=== PATIENT | male | born 1935 | race Caucasian/White ===

== ENCOUNTER 2020-02-07 11:35 | Outpatient (CLI) | payer OTHER, SELFPAY ==
--- NOTE | 2020-02-07 11:45 | MM_ITS ---
WS: [id number] BILATERAL DIGITAL DIAGNOSTIC MAMMOGRAM MAMMOGRAPHY WITH CAD CLINICAL INFORMATION: LEFT BREAST PAIN LUMP MASTODYNIA COMPARISON: None. TECHNIQUE: Bilateral CC, MLO, and ML views. FINDINGS: Scattered fibroglandular densities bilaterally. Palpable marker left breast. Dense parenchymal breast tissue deep to the palpable marker at the left areola. Similar-appearing parenchymal tissue subareol ar right breast. Ultrasound is pending ULTRASOUND BREAST LEFT TECHNIQUE: Ultrasound left breast focused area of concern. CLINICAL INFORMATION: LEFT BREAST PAIN LUMP MASTODYNIA COMPARISON: None. FINDINGS: Ultrasound left breast at the nipple area. Right breast areola ultrasound obtained for comparison. De nse shadowing breast tissue deep to the areola is most consistent with gynecomastia. No focal lesions to target for biopsy. MM/[place] [id number] IMPRESSION: BI-RADS: 2-Benign FOLLOW UP: See Report Additional management of the palpable abnormality should be based on clinical g rounds.
== END 2020-02-07 11:36 | disposition home or self-care (01) ==
LOC: RADSHAW 11:38
PROVIDERS: PCP Emergency Medicine Emergency Medical Services; Visit Provider Surgery
DX: N64.4 Mastodynia (principal); N63.20 Unspecified lump in the left breast, unspecified quadrant
CPT/HCPCS: 76642; 77066

== ENCOUNTER 2020-02-21 12:13 | Day surgery (SDC) | payer OTHER, SELFPAY ==
[2020-02-18 09:36] VITALS: BMI 23.0
[2020-02-21] VITALS (8 sets, daily range): BP systolic 117–184; BP diastolic 49–95; PULSE 45–55; RESP 16–18; TEMP 36.2–36.9; O2SAT 95–98
[2020-02-21 13:10] LABS: Glucose Point of Care 93 mg/dL (70-110)
[2020-02-21] MEDS: sodium chloride 0.9% 1,000 ML 30 ML IV (13:11)
--- NOTE | 2020-02-21 13:12 | ECG_ITS ---
Measurements Intervals [place] Rate: 52 P: 36 UT: 213 QRS: -6 QRSD: 91 T: 39 QT: 409 QTc: 381 SINUS BRADYCARDIA WITH FIRST DEGREE AV BLOCK MODERATE VOLTAGE CRITERIA FOR LVH, CONSIDER NORMAL VARIANT [MEETS CRITERIA IN ONE OF: R(aVL), S(V1), R(V5), R(V5/V6)+S(V1)] Compared to ECG 02/04/2019 10:36:53 First degree AV block now present Electronically Signed On 02-21-2020 17:07:56 CDT by Daryl Dowd M.D. [email or web address]
--- NOTE | 2020-02-21 13:16 | ANES.PREANE2 ---
Pre-Anesthetic Assessment Pre-Anesthetic Assessment: Height/Weight: Height 1.75 m Weight 70.76 kg Temp Pulse Resp BP Pulse Ox 98.4 F 54 L 18 184/95 98 02/21/20 12:59 02/21/20 12:59 02/21/20 12:59 02/21/20 12:59 02/21/20 12:59 Preop Diagnosis: Excision of left breast mass Proposed Procedure: Operation Date: 02/21/20 14:20 Proposed Procedures p Excision [place] 15562 N64.4 N63.20(Left) - Caleb Fink MD Familial anesthetic complications: None Was Beta Scottie taken within 24 hours: Yes Last intake: Intake Last Liquid Date 02/20/20 Last Liquid Time 18:00 Last Solid Date 02/20/20 Last Solid Time 18:00 Social: Social History: Alcohol and No tobacco Comment: 3-8 beers a day, sometimes none Exam: Pre-Anes Outpt Exam: alert, oriented x 3, clear to auscultation bilaterally and regular rate & rhythm Airway: Cervical ROM: WNL MP: 3 Dentition: Chipped Additional comments: missing Pulmonary: Pulmonary: None reported CV/HEM: CV/HEM: CAD (March 2019 - still on blood thinners, off now for surgery) and HTN : : None reported Hepatic: Hepatic: None reported GI: GI: GERD Metabolic: Metabolic: DM, Hyperlipidemia and Thyroid Musc/skel: Musc/skel: None reported Neuropsych: Neuropsych: None reported Anesthetic Plan: ASA status: 3 Anesthesia: General Risk of > 500 ml blood loss (7ml/kg in children): No Meds/Allergies Current Medications: Current Medications Generic Name Dose Route Start Last Admin Trade Name Freq PRN Reason Stop Dose Admin Sodium Chloride 1,000 mls @ 30 ml s/hr 02/21/20 12:45 02/21/20 13:11 Sodium Chloride 0.9% IV 02/22/20 12:44 30 mls/hr .Q24H ROSENDO Administration PFSH Anesthesia PFSH: Medical History Anemia Arthritis Benign neoplasm of large bowel BPH (benign prostatic hyperplasia) Diabetes Hearing loss Hyperlipidemia Hypertension Neuropathy Painful lumpy left breast Surgical History History of arthroplasty of right shoulder History of coronary angioplasty with insertion of stent History of left hip replacement Family History Denies family history of Anesthesia complication Bleeding disorder Social History Smoking and tobacco status: never smoked Second hand smoke exposure: No Alcohol intake: never Adopted: No Caregiver/support person: No Lives independently: Yes Data Anesthesia Other Labs: Laboratory Results - last 48 hr 02/21/20 13:07 POC Glucose 93 Cardiac Studies: No Data to Display
--- NOTE | 2020-02-21 13:21 | W.PM.OPSUD ---
Surgery/Procedure H&P Update DATE OF PROCEDURE: February 21, 2020 DATE H&P PERFORMED: 02/16/20 H&P UPDATE INFORMATION: I have reviewed H&P completed within last 30 days, I have examined patient prior to procedure and No changes to prior documentation PREOP DIAGNOSIS: Excision of left breast mass PRIMARY INDICATION FOR PROCEDURE: The same PLANNED PROCEDURE: Operation Date: 02/21/20 14:20 Proposed Procedures p Excision [place] 36354 N64.4 N63.20(Left) - Caleb Fink MD
[2020-02-21] MEDS: lidocaine 2% INJ 20 mL INJECTION (14:01)
--- NOTE | 2020-02-21 14:07 | P.OP_ITS ---
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 Right breast areola ultrasound obtained for comparison. Dense shadowing breast tissue deep to the areola is most consistent with gynecomastia. No focal lesions to target for biopsy. Patient continues to hurt and was evaluated to discuss potential surgical excision After history taking, physical examination and reviewing the chart and images with my personal interpretation I counseled the patient for excision of left breast mass and he agreed to proceed. Informed consent per chart Procedure: After identifying the patient holding area, the left breast was marked before the procedure by myself, patient was then taken to the operative suite, was placed in supine position, intubated by anesthesia, prophylactic IV antibiotics were given per protocol, both arms were tucked, prep and drape of the left pectoralis region was done under the usual sterile technique. Timeout was done verifying the patient's name/date of /planned procedure and destination after the procedure, all were in agreement. After palpation of the breast lump I did add circum-aleolar incision on top of the mass, I was able to dissect using the Bovie cautery at good margin of normal breast tissue surrounding the mass, and appropriate orientation was done for the breast mass in the form of, short superior sutures, long left lateral sutures, and the specimen was taken out and passed to the circulating nurse for permanent pathology Thorough irrigation of the cavity was done and hemostasis, followed by deep dermal closure by 3-0 Vicryl, then 4-0 Monocryl for skin closure Lidocaine 2% was injected at the site of the incision, surgical glue was then applied followed by dry dressing in the form of gauze for pressure dressing and Tegaderm. Patient tolerated the procedure well, count of instruments,needles and sponges were completed at the end of the procedure.And then patient was transferred to the recovery area in stable condition. I Was present for the whole entire procedure
--- NOTE | 2020-02-21 14:52 | SUR.PHASEI ---
1416 PT AWAKE ALERT TALKATIVE WANTS TO EAT AND GO HOME, PT TO OPS PER CART PT ALERT AND TALKATIVE WITH NURSE.
== END 2020-02-21 15:30 | disposition home or self-care (01) ==
PROVIDERS: PCP Emergency Medicine Emergency Medical Services; Visit Provider Surgery
PROC: (CPT 19120; principal; 2020-02-21 14:10)
DX: N64.4 Mastodynia (principal); I25.10 Atherosclerotic heart disease of native coronary artery without angina pectoris; K21.9 Gastro-esophageal reflux disease without esophagitis; E78.5 Hyperlipidemia, unspecified; M19.90 Unspecified osteoarthritis, unspecified site; E11.40 Type 2 diabetes mellitus with diabetic neuropathy, unspecified; I10 Essential (primary) hypertension; Z79.84 Long term (current) use of oral hypoglycemic drugs
CPT/HCPCS: 19120; 12345; 36416; 82962; 88305; 93005; 96365; J0131; J0690; J2001; J2704; J3010; J7030

== ENCOUNTER 2021-06-20 06:00 | Outpatient (RCR) | payer OTHER, SELFPAY | END 2021-06-21 23:59 | disposition home or self-care (01) | LOC: GPT 06:00 | PROVIDERS: Referring Provider Orthopaedic Surgery; Visit Provider Orthopaedic Surgery | DX: Z47.1 Aftercare following joint replacement surgery (principal); Z96.612 Presence of left artificial shoulder joint | CPT/HCPCS: 97110; 97162; 97530 ==

== ENCOUNTER 2021-06-22 06:00 | Outpatient (RCR) | payer OTHER, SELFPAY | END 2021-07-22 23:59 | disposition home or self-care (01) | LOC: GPT 06:00 | PROVIDERS: Referring Provider Orthopaedic Surgery; Visit Provider Orthopaedic Surgery | DX: Z47.1 Aftercare following joint replacement surgery (principal); Z96.612 Presence of left artificial shoulder joint | CPT/HCPCS: 97110; 97530 ==

== ENCOUNTER → 2024-02-24 13:15 | Outpatient (BNVA) | payer OTHER, SELFPAY | PROVIDERS: Visit Provider Podiatrist Foot & Ankle Surgery | DX: L60.3 Nail dystrophy (principal); G62.9 Polyneuropathy, unspecified; M20.42 Other hammer toe(s) (acquired), left foot; E11.42 Type 2 diabetes mellitus with diabetic polyneuropathy; Z79.84 Long term (current) use of oral hypoglycemic drugs | CPT/HCPCS: 11721; 99203 ==

== ENCOUNTER → 2024-04-27 10:24 | Outpatient (BNVA) | payer OTHER, SELFPAY | PROVIDERS: Visit Provider Podiatrist Foot & Ankle Surgery | DX: L60.3 Nail dystrophy (principal); G62.9 Polyneuropathy, unspecified; M20.42 Other hammer toe(s) (acquired), left foot; E11.42 Type 2 diabetes mellitus with diabetic polyneuropathy; Z79.84 Long term (current) use of oral hypoglycemic drugs | CPT/HCPCS: 11721 ==

== ENCOUNTER 2024-05-11 06:00 | Outpatient (RCR) | payer OTHER, SELFPAY | END 2024-05-27 09:36 | disposition home or self-care (01) | LOC: GPT 06:00 | PROVIDERS: Visit Provider Orthopaedic Surgery | DX: M05.10 Rheumatoid lung disease with rheumatoid arthritis of unspecified site (principal) | CPT/HCPCS: 97110; 97112; 97161; 97530 ==

== ENCOUNTER 2024-05-23 06:00 | Outpatient (RCR) | payer OTHER, SELFPAY | END 2024-06-21 23:59 | disposition home or self-care (01) | LOC: GPT 06:00 | PROVIDERS: Visit Provider Orthopaedic Surgery | DX: M05.10 Rheumatoid lung disease with rheumatoid arthritis of unspecified site (principal) | CPT/HCPCS: 97110 ==

== ENCOUNTER → 2024-09-01 14:38 | Outpatient (BNVA) | payer OTHER, SELFPAY | PROVIDERS: Visit Provider Podiatrist Foot & Ankle Surgery | DX: L60.3 Nail dystrophy (principal); G62.9 Polyneuropathy, unspecified; M20.42 Other hammer toe(s) (acquired), left foot; E11.42 Type 2 diabetes mellitus with diabetic polyneuropathy; Z79.84 Long term (current) use of oral hypoglycemic drugs | CPT/HCPCS: 11721 ==

== ENCOUNTER → 2024-11-16 09:02 | Outpatient (BNVA) | payer OTHER, SELFPAY | PROVIDERS: PCP Nurse Practitioner; Visit Provider Podiatrist Foot & Ankle Surgery | DX: E11.42 Type 2 diabetes mellitus with diabetic polyneuropathy (principal); L60.3 Nail dystrophy; L84 Corns and callosities; G62.9 Polyneuropathy, unspecified; M20.42 Other hammer toe(s) (acquired), left foot; Z79.84 Long term (current) use of oral hypoglycemic drugs; M05.79 Rheumatoid arthritis with rheumatoid factor of multiple sites without organ or systems involvement; M06.9 Rheumatoid arthritis, unspecified; M81.0 Age-related osteoporosis without current pathological fracture; R21 Rash and other nonspecific skin eruption; Z11.1 Encounter for screening for respiratory tuberculosis; Z71.85 Encounter for immunization safety counseling; Z11.59 Encounter for screening for other viral diseases; Z79.899 Other long term (current) drug therapy | CPT/HCPCS: 11055; 11721; 36415; 80076; 82565; 85025; 85651; 86140; 86200; 86431; 86480; 86704; 86803; 87340; 99204 ==

== ENCOUNTER 2024-12-07 10:45 | Outpatient (CLI) | payer OTHER, SELFPAY ==
--- NOTE | 2024-12-07 10:53 | CT_ITS ---
WS: [id number] CT PARANASAL SINUSES HISTORY: CHRONIC PANSINUSITIS TECHNIQUE: Contiguous 1.0 mm axial images obtained through the sinuses. Images are reconstructed in sagittal and coronal planes. All CT scans at [facility] use at least one of these dose optimization techniques: automated exposure control; mA and/or kV adjustment per patient size (includes targeted exams where dose is matched to clinical indication); or iterative reconstruction. DLP: 335.58 mGy.cm COMPARISON: None available. Frontal sinuses: Minimal pneumatization of the RIGHT frontal sinus. Small but pneumatized LEFT frontal sinus with minimal mucoperiosteal thickening. Mucoperiosteal thickening extends into the frontal ethmoid recess. Sphenoid sinus: Mild mucosal thickening along the anterior most sphenoid sinus. Ethmoid sinuses: Bilateral mild ethmoid air cell disease. Predominantly involving the anterior air cells. Maxillary sinus: Mild bilateral mucoperiosteal thickening but greater on the LEFT. No air-fluid levels. No osseous destruction or sclerosis. Ostiomeatal unit: Ostiomeatal units are both patent. There is a small amount of mucoperiosteal thickening. Bilateral nazario bullosa middle turbinates. Wall calcification of an air cell in the inferior medial LEFT air cell. May be from prior infection. Mild deviation of the optic chiasm. Anterior nasal septal deviation to the RIGHT. Posterior nasal septum spurring to the LEFT. Carotid cavernous artery calcifications. Cerebral and cerebellar atrophy is visualized. CT/CT sinus wo con* [id number] IMPRESSION: 1. Mucoperiosteal thickening within the sinuses as above with no air-fluid lev els. 2. Mild curvature and deviation of the nasal septum. 3. No osseous destruction.
== END 2024-12-07 10:46 | disposition home or self-care (01) ==
LOC: RAD 10:47
PROVIDERS: PCP Nurse Practitioner Family; Visit Provider Specialist
DX: J32.4 Chronic pansinusitis (principal); J34.2 Deviated nasal septum; R93.89 Abnormal findings on diagnostic imaging of other specified body structures; J34.89 Other specified disorders of nose and nasal sinuses; J32.0 Chronic maxillary sinusitis; H47.49 Disorders of optic chiasm in (due to) other disorders; I65.23 Occlusion and stenosis of bilateral carotid arteries; G31.89 Other specified degenerative diseases of nervous system
CPT/HCPCS: 70486

== ENCOUNTER → 2025-01-03 12:56 | Outpatient (BNVA) | payer OTHER, SELFPAY | PROVIDERS: PCP Nurse Practitioner Family; Visit Provider Nurse Practitioner Family | DX: L85.3 Xerosis cutis (principal); L30.4 Erythema intertrigo; D48.5 Neoplasm of uncertain behavior of skin; L82.0 Inflamed seborrheic keratosis; Z78.9 Other specified health status; L29.89 Other pruritus; L57.0 Actinic keratosis | CPT/HCPCS: 11104; 17000; 17110; 99204 ==

== ENCOUNTER → 2025-02-02 14:36 | Outpatient (BNVA) | payer OTHER, SELFPAY | PROVIDERS: PCP Nurse Practitioner Family; Visit Provider Internal Medicine Rheumatology | DX: M05.79 Rheumatoid arthritis with rheumatoid factor of multiple sites without organ or systems involvement (principal); Z79.899 Other long term (current) drug therapy; M81.0 Age-related osteoporosis without current pathological fracture; Z71.85 Encounter for immunization safety counseling; B19.10 Unspecified viral hepatitis B without hepatic coma | CPT/HCPCS: 36415; 80076; 82565; 85025; 85651; 86140; 87517; 99214 ==

== ENCOUNTER → 2025-03-01 11:21 | Outpatient (BNVA) | payer OTHER, SELFPAY | PROVIDERS: PCP Nurse Practitioner Family; Visit Provider Podiatrist Foot & Ankle Surgery | DX: E11.42 Type 2 diabetes mellitus with diabetic polyneuropathy (principal); L60.3 Nail dystrophy; L84 Corns and callosities; G62.9 Polyneuropathy, unspecified; M20.42 Other hammer toe(s) (acquired), left foot; Z79.84 Long term (current) use of oral hypoglycemic drugs | CPT/HCPCS: 11056; 11721 ==

== ENCOUNTER → 2025-05-03 12:40 | Outpatient (BNVA) | payer OTHER, SELFPAY | PROVIDERS: PCP Nurse Practitioner Family; Visit Provider Internal Medicine Rheumatology | DX: M05.79 Rheumatoid arthritis with rheumatoid factor of multiple sites without organ or systems involvement (principal); Z79.899 Other long term (current) drug therapy; M81.0 Age-related osteoporosis without current pathological fracture; Z71.85 Encounter for immunization safety counseling | CPT/HCPCS: 36415; 80076; 82565; 85025; 85651; 86140; 99214 ==

== ENCOUNTER → 2025-05-05 10:34 | Outpatient (BNVA) | payer OTHER, SELFPAY | PROVIDERS: PCP Family Medicine Geriatric Medicine; Visit Provider Podiatrist Foot & Ankle Surgery | DX: E11.42 Type 2 diabetes mellitus with diabetic polyneuropathy (principal); L60.3 Nail dystrophy; L84 Corns and callosities; G62.9 Polyneuropathy, unspecified; M20.42 Other hammer toe(s) (acquired), left foot; Z79.84 Long term (current) use of oral hypoglycemic drugs | CPT/HCPCS: 11056; 11721 ==

== ENCOUNTER 2025-06-22 10:39 | Outpatient (CLI) | payer OTHER, SELFPAY ==
[2025-06-22 12:12] LABS: Hematocrit 38.8 % (37-53); Hemoglobin 12.70 g/dL (11.27-16.99); Mean Corpuscular HGB Conc 32.7 g/dL (30-55); Mean Corpuscular Hemoglobin 27.8 pg (27-33); Mean Corpuscular Volume 84.9 fl (82-101); Nucleated Red Blood Cells % 0 %; Platelet Count 279 10^3/cmm (157-399); Red Blood Count 4.57 10^6/uL (3.85-5.65); White Blood Count 6.98 10^3/uL (3.29-11.43)
[2025-06-22 12:48] LABS: Alanine Aminotransferase 15 U/L (0-41); Albumin Level 4.3 g/dL (3.5-5.2); Alkaline Phosphatase 91 U/L (40-130); Aspartate Amino Transferase 28 U/L (0-40); Globulin 3.1 g/dL (1.3-4.6); Total Protein 7.4 g/dL (6.6-8.7)
== END 2025-06-22 10:40 | disposition home or self-care (01) ==
LOC: LAB 10:41
PROVIDERS: PCP Family Medicine Geriatric Medicine; Visit Provider Internal Medicine Rheumatology
DX: Z79.899 Other long term (current) drug therapy (principal)
CPT/HCPCS: 36415; 80076; 82565; 85025; 85651; 86140

== ENCOUNTER → 2025-07-07 10:51 | Outpatient (BNVA) | payer OTHER, SELFPAY | PROVIDERS: PCP Family Medicine Geriatric Medicine; Visit Provider Podiatrist Foot & Ankle Surgery | DX: E11.8 Type 2 diabetes mellitus with unspecified complications (principal); L60.3 Nail dystrophy; G62.9 Polyneuropathy, unspecified; M20.42 Other hammer toe(s) (acquired), left foot; E11.42 Type 2 diabetes mellitus with diabetic polyneuropathy; Z79.84 Long term (current) use of oral hypoglycemic drugs | CPT/HCPCS: 11721 ==

== ENCOUNTER → 2025-07-27 10:31 | Outpatient (BNVA) | payer OTHER, SELFPAY | PROVIDERS: PCP Family Medicine Geriatric Medicine; Visit Provider Internal Medicine Rheumatology | DX: M05.79 Rheumatoid arthritis with rheumatoid factor of multiple sites without organ or systems involvement (principal); Z79.899 Other long term (current) drug therapy; M81.0 Age-related osteoporosis without current pathological fracture; Z71.85 Encounter for immunization safety counseling | CPT/HCPCS: 99214 ==

== ENCOUNTER → 2025-09-20 12:01 | Outpatient (BNVA) | payer OTHER, SELFPAY | PROVIDERS: PCP Family Medicine Geriatric Medicine; Visit Provider Nurse Practitioner Family | DX: I87.2 Venous insufficiency (chronic) (peripheral) (principal); L30.4 Erythema intertrigo; L85.3 Xerosis cutis | CPT/HCPCS: 99214 ==